=== PATIENT | female | born 1990 | race African-American/Black ===

== ENCOUNTER 2018-08-19 19:02 | Emergency (ER) | payer MEDICAID ==
[~2018-08-19] VITALS: Ht 167.6 cm; Wt 54.4 kg
[2018-08-19 19:27] VITALS: BP 132/86
[2018-08-19 19:42] LABS: Urine Bacteria NONE SEEN /hpf (None Seen); Urine Blood Negative /uL (Negative); Urine Mucus FEW (None Seen); Urine WBC 1 /hpf (0 - 5)
[2018-08-19] MEDS ORDERED: AZITHROMYCIN 250 MG TAB PO ONE (23:15)
[2018-08-19] MEDS ORDERED: cefTRIAXone SOD 1,000 MG VL IM ONE (23:15)
== END 2018-08-20 00:05 | disposition home or self-care (01) ==
LOC: ER 19:02
DX: Z11.3 Encounter for screening for infections with a predominantly sexual mode of transmission (principal)
CPT/HCPCS: 81001; 81025; 96372; 99283; J0696